=== PATIENT | female | born 1950 | race Caucasian/White ===

== ENCOUNTER 2021-08-24 10:35 | Inpatient (IN) | payer MEDICARE, MEDICAID ==
[~2021-08-24] VITALS: Ht 170.2 cm; Wt 128.8 kg
[2021-08-24] MEDS ORDERED: OLANZAPINE 5MG TABLET ODT PO ONE (12:45)
[2021-08-24] MEDS ORDERED: LORAZEPAM 2MG/ML CPJ IM STA (14:24)
[2021-08-24] MEDS ORDERED: KETOROLAC 60MG/2ML VIAL IM ONE (14:30)
[2021-08-24] MEDS ORDERED: DIPHENHYDRAMINE 50MG/ML VIAL IM ONE (14:30)
[2021-08-24] MEDS ORDERED: HALOPERIDOL LACTATE 5MG/ML VIAL IM ONE (14:30)
[2021-08-24 16:23] LABS: HEMATOCRIT. 23.1 % (36.0-48.0); HEMOGLOBIN. 7.6 g/dL (12.0-16.0); MEAN CORPUSCULAR VOLUME 97.1 fL (81.0-99.0); MEAN PLATELET VOLUME 7.7 fl (7.4-10.4); PLATELET 298 x1000/uL (130-400); RED BLOOD CELL COUNT 2.38 mill/uL (4.2-5.4); RED CELL DISTRIBUTION WIDTH 14.3 % (11.6-14.6)
[2021-08-24 16:26] LABS: CHLORIDE 118 mEq/L (98-107)
[2021-08-24 17:18] LABS: PLATELET ESTIMATE NORMAL
[2021-08-24] MEDS ORDERED: DEXTROSE 50% WATER 50ML SYRINGE IV ONE (17:45)
[2021-08-24] MEDS ORDERED: DEXT 5%/0.9% NACL 1,000 ML IV STA (17:50)
[2021-08-24 20:49] LABS: CLARITY URINE TURBID (CLEAR); COLOR URINE YELLOW (YELLOW); KETONES URINE NEGATIVE (NEGATIVE); LEUKOCYTE ESTERASE URINE 2+ (NEGATIVE); NITRITE URINE NEGATIVE (NEGATIVE); OCCULT BLOOD URINE NEGATIVE (NEGATIVE); PROTEIN URINE NEGATIVE (NEGATIVE); SPECIFIC GRAVITY URINE 1.017 (1.005-1.030); UROBILINOGEN URINE 0.2 E.U./dL (0.2-1.0)
[2021-08-24 21:00] LABS: *AMPHETAMINES SCREEN URINE NEGATIVE (NEGATIVE); CANNABINOID URINE SCREEN NEGATIVE (NEGATIVE); OPIATES URINE SCREEN NEGATIVE (NEGATIVE); PHENCYCLIDINE URINE SCREEN NEGATIVE (NEGATIVE)
[2021-08-24 21:01] LABS: *BARBITURATES SCREEN URINE NEGATIVE (NEGATIVE); *BENZODIAZEPINES SCREEN URINE NEGATIVE (NEGATIVE); *COCAINE SCREEN URINE PRESUMTIVE POSITIVE (NEGATIVE); METHADONE URINE SCREEN NEGATIVE (NEGATIVE)
[2021-08-25] VITALS (11 sets, daily range): BP systolic 91–117; BP diastolic 43–75
[2021-08-25] MEDS ORDERED: ONDANSETRON HCL 4MG/2ML INJ IV PRN (03:00)
[2021-08-25] MEDS ORDERED: MAGNESIUM/ALUMINUM HYDROXIDE/SIMETHICONE 30ML UDC PO PRN (03:00)
[2021-08-25] MEDS ORDERED: IPRATROPIUM/ALBUTEROL 0.5-3(2.5)MG/3ML NEB NEB PRN (03:00)
[2021-08-25] MEDS ORDERED: ACETAMINOPHEN 325MG TABLET PO PRN (03:00)
[2021-08-25] MEDS ORDERED: MAGNESIUM 2 G PREMIX 50 ML IV NR (03:00)
[2021-08-25] MEDS ORDERED: DOCUSATE SODIUM 100MG CAPSULE PO PRN (03:00)
[2021-08-25] MEDS ORDERED: CLONIDINE 0.1MG TABLET PO PRN (03:00)
[2021-08-25] MEDS ORDERED: LORAZEPAM 2MG/ML CPJ IV PRN (03:00)
[2021-08-25] MEDS ORDERED: DEXTROSE 50% WATER 50ML SYRINGE IV PRN ×2 (03:15→10:30)
[2021-08-25] MEDS ORDERED: NALOXONE HCL 0.4MG/ML VIAL IV PRN (03:15)
[2021-08-25] MEDS ORDERED: VANCOMYCIN 1250MG in DEXTROSE 5% WATER 250ML IV NR (03:30)
[2021-08-25] MEDS ORDERED: BLOOD SUGAR DIAGNOSTIC STRIP TEST SCH (04:00)
[2021-08-25] MEDS ORDERED: INSULIN LISPRO (LOW DOSE) 100 UNITS/ML SUBCUT SCH (04:00)
[2021-08-25] MEDS ORDERED: LACTATED RINGERS 1,000 ML IV SCH (04:00)
[2021-08-25] MEDS: PIPERACILLIN/TAZOBACTAM 3.375 G in DEXTROSE 5% WATER 50 ML IV SCH ×3 (04:23→21:22)
[2021-08-25 04:46] LABS: BASOPHILS % 0.2 % (0.0-2.0); EOSINOPHILS % 0.2 % (0.0-5.0); LYMPHOCYTES % 20.4 % (20.0-50.0); MEAN CORPUSCULAR HEMOGLOBIN 32.3 pg (28.0-32.0); MEAN CORPUSCULAR VOLUME 96.6 fL (81.0-99.0); MEAN PLATELET VOLUME 7.9 fl (7.4-10.4); MONOCYTES % 6.7 % (2.0-8.0); NEUTROPHILS % 72.5 % (40.0-76.0); PLATELET 301 x1000/uL (130-400); RED BLOOD CELL COUNT 2.04 mill/uL (4.2-5.4)
[2021-08-25 05:00] LABS: D-DIMER 1.44 mg/L FEU (<0.50); INR 1.1; PARTIAL THROMBOPLASTIN TIME 23.1 sec (23.4-31.0); PROTHROMBIN TIME 11.6 sec (9.6-11.0)
[2021-08-25 05:01] LABS: HEMATOCRIT. 19.7 % (36.0-48.0); HEMOGLOBIN. 6.6 g/dL (12.0-16.0)
[2021-08-25 05:13] LABS: CREATINE KINASE 630 IU/L (26-192)
[2021-08-25 05:18] LABS: CORTISOL 14.3 ucg/dL
[2021-08-25 05:29] LABS: HEPATITIS B SURFACE ANTIGEN NEGATIVE
[2021-08-25] MEDS ORDERED: ENOXAPARIN 40MG/0.4ML SYR SUBCUT SCH (09:00)
[2021-08-25] MEDS: INSULIN LISPRO 100 UNITS/ML SUBCUT SCH ×3 (11:39→21:34)
[2021-08-25] MEDS: BLOOD SUGAR DIAGNOSTIC STRIP TEST SCH ×3 (11:41→21:00)
[2021-08-25] MEDS ORDERED: QUET400T PO (14:21)
[2021-08-25] MEDS ORDERED: DIPH25CA83 MT (14:23)
[2021-08-25] MEDS ORDERED: ASPI-1497 MT (14:24)
[2021-08-25] MEDS: HYDROCODONE/ACETAMINOPHEN 5/325MG TABLET PO PRN (18:17)
[2021-08-25] MEDS: QUETIAPINE FUMARATE 50MG TABLET PO SCH (21:21)
[2021-08-25] MEDS: LORAZEPAM 0.5MG TABLET PO PRN (21:22)
[2021-08-25] MEDS ORDERED: VANCOMYCIN 1 G PREMIX 200 ML IV SCH (22:00)
[2021-08-25 23:23] LABS: HEMOGLOBIN 6.4 g/dL (12.0-16.0)
[2021-08-25 23:36] LABS: CREATINE KINASE MB FRACTION 3.7 ng/mL (0.5-3.6)
[2021-08-25 23:51] LABS: FOLIC ACID (FOLATE) SERUM 14.1 ng/mL (>5.38)
[2021-08-26] VITALS (10 sets, daily range): BP systolic 93–128; BP diastolic 43–78
[2021-08-26] MEDS: LORAZEPAM 0.5MG TABLET PO PRN ×3 (04:29→20:07)
[2021-08-26] MEDS: HYDROCODONE/ACETAMINOPHEN 5/325MG TABLET PO PRN ×3 (04:33→20:07)
[2021-08-26] MEDS: PIPERACILLIN/TAZOBACTAM 3.375 G in DEXTROSE 5% WATER 50 ML IV SCH ×3 (05:11→21:47)
[2021-08-26 06:47] LABS: MEAN CORPUSCULAR HEMOGLOBIN 32.1 pg (28.0-32.0); MEAN CORPUSCULAR VOLUME 96.4 fL (81.0-99.0); MEAN PLATELET VOLUME 7.8 fl (7.4-10.4); PLATELET 261 x1000/uL (130-400); RED BLOOD CELL COUNT 2.13 mill/uL (4.2-5.4); RED CELL DISTRIBUTION WIDTH 14.2 % (11.6-14.6)
[2021-08-26 07:56] LABS: HEMATOCRIT. 20.6 % (36.0-48.0); HEMOGLOBIN. 6.9 g/dL (12.0-16.0)
[2021-08-26] MEDS: BLOOD SUGAR DIAGNOSTIC STRIP TEST SCH ×4 (07:58→20:07)
[2021-08-26] MEDS: INSULIN LISPRO 100 UNITS/ML SUBCUT SCH ×4 (08:39→20:07)
[2021-08-26 13:48] LABS: NUCLEATED RED BLOOD CELLS 2 /100 WBC; PLATELET ESTIMATE NORMAL
[2021-08-26] MEDS: PANTOPRAZOLE SODIUM 40 MG/VIAL IV SCH ×2 (15:57→20:06)
[2021-08-26] MEDS: FLUOXETINE HCL 10 MG CAPSULE PO SCH (15:58)
[2021-08-26 17:07] LABS: MEAN CORPUSCULAR HEMOGLOBIN 32.2 pg (28.0-32.0); MEAN CORPUSCULAR VOLUME 96.5 fL (81.0-99.0); MEAN PLATELET VOLUME 7.6 fl (7.4-10.4); PLATELET 264 x1000/uL (130-400); RED BLOOD CELL COUNT 2.49 mill/uL (4.2-5.4); RED CELL DISTRIBUTION WIDTH 14.5 % (11.6-14.6)
[2021-08-26 17:56] LABS: PLATELET ESTIMATE NORMAL
[2021-08-26] MEDS: QUETIAPINE FUMARATE 50MG TABLET PO SCH (20:06)
[2021-08-27] VITALS: BP 98/52
[2021-08-27 04:00] VITALS: BP 128/68
[2021-08-27] MEDS: PIPERACILLIN/TAZOBACTAM 3.375 G in DEXTROSE 5% WATER 50 ML IV SCH ×3 (05:17→22:07)
[2021-08-27] MEDS: LORAZEPAM 0.5MG TABLET PO PRN ×4 (05:23→22:25)
[2021-08-27] MEDS: HYDROCODONE/ACETAMINOPHEN 5/325MG TABLET PO PRN ×4 (05:23→22:25)
[2021-08-27 06:30] LABS: PROTHROMBIN TIME 10.9 sec (9.6-11.0)
[2021-08-27] MEDS: BLOOD SUGAR DIAGNOSTIC STRIP TEST SCH ×4 (07:30→20:42)
[2021-08-27] MEDS: INSULIN LISPRO 100 UNITS/ML SUBCUT SCH ×4 (08:00→21:39)
[2021-08-27] MEDS: FLUOXETINE HCL 10 MG CAPSULE PO SCH (09:00)
[2021-08-27] MEDS: PANTOPRAZOLE SODIUM 40 MG/VIAL IV SCH ×2 (09:43→20:41)
[2021-08-27] MEDS ORDERED: PROPOFOL 200MG/20ML VIAL IV ONE (11:36)
[2021-08-27] MEDS ORDERED: MIDAZOLAM HCL 2 MG/2 ML VIAL ONE (11:36)
[2021-08-27] MEDS ORDERED: LIDOCAINE HCL/PF 1% 10 MG/ML 5ML VIAL ONE (11:37)
[2021-08-27] MEDS ORDERED: SIMETHICONE 40 MG/0.6 ML 30ML ONE (11:47)
[2021-08-27 16:00] VITALS: BP 121/72
[2021-08-27] MEDS: FERROUS SULFATE 325MG TABLET PO SCH (17:31)
[2021-08-27 20:00] VITALS: BP 144/76
[2021-08-27] MEDS: QUETIAPINE FUMARATE 50MG TABLET PO SCH (20:42)
[2021-08-27 22:00] VITALS: BP 75/52
[2021-08-28] VITALS (9 sets, daily range): BP systolic 131–162; BP diastolic 64–76
[2021-08-28] MEDS: PIPERACILLIN/TAZOBACTAM 3.375 G in DEXTROSE 5% WATER 50 ML IV SCH ×2 (06:16→14:15)
[2021-08-28 06:58] LABS: HEMATOCRIT. 25.7 % (36.0-48.0); HEMOGLOBIN. 8.6 g/dL (12.0-16.0); MEAN CORPUSCULAR HEMOGLOBIN 32.1 pg (28.0-32.0); MEAN CORPUSCULAR VOLUME 96.1 fL (81.0-99.0); MEAN PLATELET VOLUME 7.6 fl (7.4-10.4); PLATELET 296 x1000/uL (130-400); RED BLOOD CELL COUNT 2.67 mill/uL (4.2-5.4); RED CELL DISTRIBUTION WIDTH 14.6 % (11.6-14.6)
[2021-08-28] MEDS ORDERED: OMEPRAZOLE 20MG CAPSULE EXTENDED RELEASE PO SCH (07:30)
[2021-08-28] MEDS: BLOOD SUGAR DIAGNOSTIC STRIP TEST SCH ×3 (07:30→17:23)
[2021-08-28] MEDS: FERROUS SULFATE 325MG TABLET PO SCH ×2 (08:57→17:28)
[2021-08-28] MEDS: FLUOXETINE HCL 10 MG CAPSULE PO SCH (08:57)
[2021-08-28] MEDS: HYDROCODONE/ACETAMINOPHEN 5/325MG TABLET PO PRN ×2 (08:57→14:15)
[2021-08-28] MEDS: INSULIN LISPRO 100 UNITS/ML SUBCUT SCH ×3 (09:00→17:29)
[2021-08-28 12:51] LABS: PLATELET ESTIMATE NORMAL
== END 2021-08-28 19:36 | disposition home health service (06) | DRG 720 ==
LOC: ER 10:35 → MICUSO 08-25 01:28 → 5EST 08-25 07:42 → MICUSO 08-25 07:42 → 5EST 08-25 13:28
PROVIDERS: ADMIT Internal Medicine; ATTEND Internal Medicine
PROC: 30233N1 Transfusion of Nonautologous Red Blood Cells into Peripheral Vein, Percutaneous Approach (ICD-10-PCS; 2021-08-25)
PROC: 0DB78ZX Excision of Stomach, Pylorus, Via Natural or Artificial Opening Endoscopic, Diagnostic (ICD-10-PCS; principal; 2021-08-27)
DX: A41.9 Sepsis, unspecified organism (principal); K22.11 Ulcer of esophagus with bleeding; K26.4 Chronic or unspecified duodenal ulcer with hemorrhage; N17.9 Acute kidney failure, unspecified; E46 Unspecified protein-calorie malnutrition; K29.61 Other gastritis with bleeding; E11.649 Type 2 diabetes mellitus with hypoglycemia without coma; D64.9 Anemia, unspecified; E11.65 Type 2 diabetes mellitus with hyperglycemia; E87.0 Hyperosmolality and hypernatremia; F33.1 Major depressive disorder, recurrent, moderate; F20.0 Paranoid schizophrenia; E83.42 Hypomagnesemia; F14.10 Cocaine abuse, uncomplicated; I10 Essential (primary) hypertension; K44.9 Diaphragmatic hernia without obstruction or gangrene; R79.89 Other specified abnormal findings of blood chemistry; R74.01 Elevation of levels of liver transaminase levels; Z20.822 Contact with and (suspected) exposure to COVID-19; R16.0 Hepatomegaly, not elsewhere classified; R74.8 Abnormal levels of other serum enzymes; Z79.4 Long term (current) use of insulin; Z90.49 Acquired absence of other specified parts of digestive tract; Z88.8 Allergy status to other drugs, medicaments and biological substances; Z79.899 Other long term (current) drug therapy; Z68.41 Body mass index [BMI] 40.0-44.9, adult
CPT/HCPCS: 36415; 76700; 78580; 80048; 80053; 80061; 80076; 80305; 80320; 81003; 82270; 82533; 82550; 82553; 82607; 82728; 82746; 82962; 83010; 83036; 83540; 83550; 83615; 83735; 84145; 84295; 84443; 84450; 84484; 84681; 85018; 85025; 85044; 85379; 86705; 86709; 86803; 86850; 86900; 86920; 87340; 87426; 88305; 93005; 93306; 93970; 99285; C9113; J1200; J1630; J1650; J1815; J1885; J2060; J2250; J2543; J2704; J3370; J3475; J3490; J7042; J7060; P9016; P9021; G0480

== ENCOUNTER 2021-09-17 09:04 | Emergency (ER) | payer MEDICARE, MEDICAID ==
[~2021-09-17] VITALS: Ht 167.6 cm; Wt 91.0 kg
[~2021-09-17 09:04] MED LIST: ASPI-1497 MT; DIPH25CA83 MT; QUET400T PO
[2021-09-17 09:07] VITALS: BP 138/95
[2021-09-17 11:25] LABS: CLARITY URINE CLEAR (CLEAR); COLOR URINE YELLOW (YELLOW); KETONES URINE TRACE (NEGATIVE); LEUKOCYTE ESTERASE URINE NEGATIVE (NEGATIVE); NITRITE URINE NEGATIVE (NEGATIVE); OCCULT BLOOD URINE NEGATIVE (NEGATIVE); PH URINE 5.5 (4.5-8.0); PROTEIN URINE TRACE (NEGATIVE)
[2021-09-17 11:44] LABS: BASOPHILS % 0.2 % (0.0-2.0); EOSINOPHILS % 0.9 % (0.0-5.0); HEMATOCRIT. 29.9 % (36.0-48.0); HEMOGLOBIN. 9.9 g/dL (12.0-16.0); LYMPHOCYTES % 22.1 % (20.0-50.0); MEAN CORPUSCULAR HEMOGLOBIN 32.4 pg (28.0-32.0); MEAN CORPUSCULAR VOLUME 97.8 fL (81.0-99.0); MEAN PLATELET VOLUME 8.1 fl (7.4-10.4); MONOCYTES % 9.4 % (2.0-8.0); NEUTROPHILS % 67.4 % (40.0-76.0); PLATELET 240 x1000/uL (130-400); RED BLOOD CELL COUNT 3.06 mill/uL (4.2-5.4); RED CELL DISTRIBUTION WIDTH 15.4 % (11.6-14.6)
[2021-09-17 11:46] LABS: *AMPHETAMINES SCREEN URINE PRESUMTIVE POSITIVE (NEGATIVE); *BARBITURATES SCREEN URINE NEGATIVE (NEGATIVE)
[2021-09-17 11:47] LABS: CHLORIDE 113 mEq/L (98-107)
[2021-09-17 11:47] LABS: *BENZODIAZEPINES SCREEN URINE NEGATIVE (NEGATIVE); *COCAINE SCREEN URINE PRESUMTIVE POSITIVE (NEGATIVE); CANNABINOID URINE SCREEN NEGATIVE (NEGATIVE); METHADONE URINE SCREEN NEGATIVE (NEGATIVE); OPIATES URINE SCREEN NEGATIVE (NEGATIVE); PHENCYCLIDINE URINE SCREEN NEGATIVE (NEGATIVE)
[2021-09-17 11:51] LABS: ETHANOL BLOOD < 10 mg/dL
[2021-09-17] MEDS ORDERED: NAPR-677 MT (12:42)
== END 2021-09-17 13:28 | disposition home or self-care (01) ==
LOC: ER 09:04
DX: R00.2 Palpitations (principal); F14.10 Cocaine abuse, uncomplicated; F15.10 Other stimulant abuse, uncomplicated; M17.0 Bilateral primary osteoarthritis of knee; D64.9 Anemia, unspecified; R21 Rash and other nonspecific skin eruption; E66.9 Obesity, unspecified; Z68.32 Body mass index [BMI] 32.0-32.9, adult
CPT/HCPCS: 36415; 71045; 73560; 80048; 80305; 80320; 81003; 83880; 84484; 85025; 99285; G0480

== ENCOUNTER 2021-09-22 18:39 | Emergency (ER) | payer MEDICARE, MEDICAID ==
[~2021-09-22] VITALS: Ht 172.7 cm; Wt 91.0 kg
[~2021-09-22 18:39] MED LIST changes: +NAPR-677 MT
[2021-09-22 21:35] VITALS: BP 129/74
[2021-09-22] MEDS ORDERED: QUET400T PO (22:14)
[2021-09-23] MEDS ORDERED: CEPH500C2 MT (10:41)
== END 2021-09-22 22:28 | disposition home or self-care (01) ==
LOC: ER 18:39
DX: R53.1 Weakness (principal); Z76.5 Malingerer [conscious simulation]; Z76.0 Encounter for issue of repeat prescription; E11.9 Type 2 diabetes mellitus without complications; R00.0 Tachycardia, unspecified; I11.0 Hypertensive heart disease with heart failure; I50.9 Heart failure, unspecified; F14.90 Cocaine use, unspecified, uncomplicated; F15.90 Other stimulant use, unspecified, uncomplicated; I25.2 Old myocardial infarction; Z59.00 Homelessness unspecified
CPT/HCPCS: 82962; 99283

== ENCOUNTER 2021-09-23 04:06 | Emergency (ER) | payer MEDICARE, OTHER ==
[~2021-09-23] VITALS: Ht 172.7 cm; Wt 91.0 kg
[2021-09-23 08:15] LABS: CLARITY URINE CLOUDY (CLEAR); COLOR URINE YELLOW (YELLOW); KETONES URINE TRACE (NEGATIVE); LEUKOCYTE ESTERASE URINE TRACE (NEGATIVE); NITRITE URINE NEGATIVE (NEGATIVE); OCCULT BLOOD URINE NEGATIVE (NEGATIVE); PH URINE 5.5 (4.5-8.0); PROTEIN URINE NEGATIVE (NEGATIVE); SPECIFIC GRAVITY URINE 1.021 (1.005-1.030)
[2021-09-23 08:47] VITALS: BP 150/86
[2021-09-23] MEDS ORDERED: CEPH500C2 MT (10:41)
[2021-09-23] MEDS ORDERED: CEFTRIAXONE SODIUM 1 G/VIAL IM ONE (10:45)
[2021-09-23] MEDS ORDERED: LIDOCAINE HCL 1% 10 MG/ML 10ML VIAL INJ ONE (11:00)
[2021-09-23] MEDS ORDERED: LIDOCAINE HCL 1% 20ML VIAL (Pyxis) INJ INFIL ONE (11:00)
== END 2021-09-23 11:21 | disposition home or self-care (01) ==
LOC: ER 04:06
DX: S09.90XA Unspecified injury of head, initial encounter (principal); N39.0 Urinary tract infection, site not specified; E11.9 Type 2 diabetes mellitus without complications; I25.2 Old myocardial infarction; I10 Essential (primary) hypertension; Z88.8 Allergy status to other drugs, medicaments and biological substances; Z86.59 Personal history of other mental and behavioral disorders; Y04.0XXA Assault by unarmed brawl or fight, initial encounter; Y93.89 Activity, other specified; Y92.89 Other specified places as the place of occurrence of the external cause; Y99.8 Other external cause status
CPT/HCPCS: 70450; 81003; 82962; 96372; 99284; J0696; J3490

== ENCOUNTER 2021-09-23 16:50 | Emergency (ER) | payer MEDICARE, OTHER ==
[~2021-09-23] VITALS: Ht 172.7 cm; Wt 91.0 kg
[~2021-09-23 16:50] MED LIST changes: +CEPH500C2 MT
[2021-09-23 20:10] VITALS: BP 123/80
== END 2021-09-23 20:22 | disposition home or self-care (01) ==
LOC: ER 16:50
DX: Z00.00 Encounter for general adult medical examination without abnormal findings (principal); Z88.8 Allergy status to other drugs, medicaments and biological substances; Z79.899 Other long term (current) drug therapy
CPT/HCPCS: 99281

== ENCOUNTER 2021-11-20 15:14 | Emergency (ER) | payer MEDICARE, OTHER ==
[~2021-11-20] VITALS: Ht 175.3 cm; Wt 90.0 kg
[~2021-11-20 15:14] MED LIST changes: +AMLO5TAB88 PO; +ASPI-1406 PO; +FLUO10CA28 PO; +QUET50TA PO; +RISP05 PO
[2021-11-20] MEDS ORDERED: ACETAMINOPHEN 325MG TABLET PO ONE (17:45)
[2021-11-20] MEDS ORDERED: HYDROCODONE/ACETAMINOPHEN 5/325MG TABLET PO ONE (18:30)
[2021-11-20 18:51] VITALS: BP 110/60
[2021-11-20] MEDS ORDERED: HYDR-4001 MT (18:59)
== END 2021-11-20 19:25 | disposition home or self-care (01) ==
LOC: ER 15:14
DX: S52.601A Unspecified fracture of lower end of right ulna, initial encounter for closed fracture (principal); I25.2 Old myocardial infarction; I10 Essential (primary) hypertension; E11.9 Type 2 diabetes mellitus without complications; Z86.59 Personal history of other mental and behavioral disorders; Z59.00 Homelessness unspecified; Z13.9 Encounter for screening, unspecified; W18.30XA Fall on same level, unspecified, initial encounter; Y93.89 Activity, other specified; Y92.89 Other specified places as the place of occurrence of the external cause; Y99.8 Other external cause status; Z79.899 Other long term (current) drug therapy
CPT/HCPCS: 29125; 73110; 99283

== ENCOUNTER 2023-07-05 00:26 | Emergency (ER) | payer MEDICARE, MEDICAID ==
[~2023-07-05] VITALS: Ht 175.3 cm; Wt 73.0 kg
[~2023-07-05 00:26] MED LIST changes: +HYDR-4001 MT
[2023-07-05 00:40] VITALS: BP 124/80; PULSE 115; RESP 18; TEMP 98.2; O2SAT 97
== END 2023-07-05 04:18 | disposition home or self-care (01) ==
LOC: ER 00:26
DX: M16.9 Osteoarthritis of hip, unspecified (principal); Z04.3 Encounter for examination and observation following other accident; E11.9 Type 2 diabetes mellitus without complications; I10 Essential (primary) hypertension; I25.2 Old myocardial infarction; F20.9 Schizophrenia, unspecified; R51.9 Headache, unspecified; F19.90 Other psychoactive substance use, unspecified, uncomplicated; Z88.8 Allergy status to other drugs, medicaments and biological substances; W18.39XA Other fall on same level, initial encounter; Y93.89 Activity, other specified; Y92.89 Other specified places as the place of occurrence of the external cause; Y99.8 Other external cause status
CPT/HCPCS: 72170; 99284